=== PATIENT | male | born 1955 | race African-American/Black ===

== ENCOUNTER 2021-01-31 19:40 | Emergency (ER) | payer OTHER ==
[2021-01-31 19:59] VITALS: BP 141/92; PULSE 89; TEMP 99; BMI 36.3
[2021-01-31] MEDS ORDERED: CEPHALEXIN MONOHYDRATE 500 MG CAPSULE (UD) PO ONE (20:55)
[2021-01-31] MEDS ORDERED: DIPHTH,PERTUSS(ACELL),TET 0.5 ML DISP.SYRIN IM ONE ×2 (20:55→21:01)
[2021-01-31] MEDS ORDERED: CEPHALEXIN MONOHYDRATE 500 MG CAPSULE (UD) ONE (21:01)
== END 2021-01-31 21:08 | disposition home or self-care (01) ==
LOC: FER 19:40
PROC: 0HQGXZZ Repair Left Hand Skin, External Approach (ICD-10-PCS; principal; 2021-01-31)
PROC: 3E0234Z Introduction of Serum, Toxoid and Vaccine into Muscle, Percutaneous Approach (ICD-10-PCS; 2021-01-31)
DX: S61.211A Laceration without foreign body of left index finger without damage to nail, initial encounter (principal); W29.3XXA Contact with powered garden and outdoor hand tools and machinery, initial encounter; Y92.9 Unspecified place or not applicable
CPT/HCPCS: 90715; 99284-25

== ENCOUNTER 2021-02-08 17:44 | Emergency (ER) | payer OTHER ==
[2021-02-08 18:00] VITALS: BP 144/85; PULSE 85; BMI 36.8
== END 2021-02-08 18:35 | disposition home or self-care (01) ==
LOC: FER 17:44
DX: Z48.02 Encounter for removal of sutures (principal)
CPT/HCPCS: 99281-25

== ENCOUNTER 2024-02-27 21:03 | Observation (INO) | payer OTHER ==
[2024-02-27 22:06] LABS: BASO % 0.4 % (0-2.0); HEMATOCRIT 37.3 % (35.4-49); HEMOGLOBIN 12.6 GM/dL (11.7-16.9); LYMPH % 30.2 % (8-40); MCH 28.3 pg (25.7-33.7); MCHC 33.9 g/dl (32.0-35.9); MEAN CELL VOLUME 83.5 fl (80-96); MONO % 7.4 % (3.8-10.2); PLATELET COUNT 190 10^3/uL (134-434); RBC 4.46 M/mm3 (4.00-5.60); RDW 14.4 % (11.9-15.9); WHITE BLOOD COUNT 5.6 K/mm3 (4.0-10.0)
[2024-02-27 22:09] LABS: INR 1.04 (0.83-1.09); PROTHROMBIN TIME (PATIENT) 11.9 SEC (9.7-13.0)
[2024-02-27 22:11] LABS: ACTIVATED PTT 31.9 SECONDS (25.2-36.5)
[2024-02-27 22:45] LABS: POTASSIUM 3.9 mmol/L (3.5-5.1)
[2024-02-27 22:47] LABS: ALBUMIN 3.5 g/dl (3.4-5.0); CALCIUM 8.5 mg/dL (8.5-10.1)
[2024-02-27 22:50] LABS: BLOOD UREA NITROGEN 12.8 mg/dL (7-18)
[2024-02-27 22:51] LABS: CREATININE 1.1 mg/dL (0.55-1.3)
[2024-02-27 22:52] LABS: TOT PROT 6.3 g/dl (6.4-8.2)
[2024-02-27 22:54] LABS: BILIRUBIN,TOTAL 0.6 mg/dL (0.2-1)
[2024-02-27] MEDS ORDERED: ATORVASTATIN CA 40 MG TABLET (FP) ONE (23:17)
[2024-02-27] MEDS: ASPIRIN 81 MG CHEWABLE TABLETS PO ONE (23:19)
[2024-02-27] MEDS: ATORVASTATIN CA 40 MG TABLET (FP) PO ONE (23:19)
[2024-02-27] MEDS ORDERED: ASPIRIN 81 MG CHEWABLE TABLETS ONE (23:19)
[2024-02-28 01:28] LABS: MAGNESIUM 1.8 mg/dL (1.8-2.4)
[2024-02-28 04:01] VITALS: BMI 36.8
[2024-02-28 08:23] LABS: HEMATOCRIT 37.7 % (35.4-49); HEMOGLOBIN 12.6 GM/dL (11.7-16.9); MCH 27.9 pg (25.7-33.7); MCHC 33.4 g/dl (32.0-35.9); MEAN CELL VOLUME 83.6 fl (80-96); MEAN PLT VOLUME 8.8 fl (7.5-11.1); PLATELET COUNT 187 10^3/uL (134-434); RBC 4.52 M/mm3 (4.00-5.60); RDW 14.4 % (11.9-15.9); WHITE BLOOD COUNT 5.2 K/mm3 (4.0-10.0)
[2024-02-28 08:36] LABS: POTASSIUM 3.8 mmol/L (3.5-5.1)
[2024-02-28 08:53] LABS: CALCIUM 8.5 mg/dL (8.5-10.1)
[2024-02-28 08:54] LABS: ALBUMIN 3.3 g/dl (3.4-5.0)
[2024-02-28 08:57] LABS: PHOSPHOROUS 2.9 mg/dL (2.5-4.9)
[2024-02-28 08:59] LABS: BILIRUBIN,TOTAL 0.9 mg/dL (0.2-1)
[2024-02-28] MEDS ORDERED: ASPIRIN 81 MG CHEWABLE TABLETS PO SCH (10:00)
[2024-02-28] MEDS: ASPIRIN 81 MG CHEWABLE TABLETS PO SCH (10:37)
[2024-02-28] MEDS: ENOXAPARIN NA (PORCINE) 40 MG/0.4 ML DISP.SYRIN SQ SCH (10:37)
[2024-02-28] MEDS: ATORVASTATIN CA 40 MG TABLET (FP) PO SCH (21:32)
[2024-02-28] MEDS ORDERED: ATORVASTATIN CA 10 MG TABLET (FP) PO SCH (22:00)
[2024-02-28] MEDS ORDERED: ATORVASTATIN CA 40 MG TABLET (FP) PO SCH (22:00)
[2024-02-29 07:35] LABS: MCH 28.2 pg (25.7-33.7); MCHC 34.1 g/dl (32.0-35.9); MEAN CELL VOLUME 82.7 fl (80-96); MEAN PLT VOLUME 8.5 fl (7.5-11.1); PLATELET COUNT 189 10^3/uL (134-434); RBC 4.59 M/mm3 (4.00-5.60); RDW 14.5 % (11.9-15.9); WHITE BLOOD COUNT 4.7 K/mm3 (4.0-10.0)
[2024-02-29 07:43] LABS: ALBUMIN 3.3 g/dl (3.4-5.0); CALCIUM 8.8 mg/dL (8.5-10.1)
[2024-02-29 07:44] LABS: BLOOD UREA NITROGEN 11.6 mg/dL (7-18); MAGNESIUM 1.9 mg/dL (1.8-2.4)
[2024-02-29 07:48] LABS: CREATININE 1.1 mg/dL (0.55-1.3); PHOSPHOROUS 2.5 mg/dL (2.5-4.9)
[2024-02-29 07:49] LABS: BILIRUBIN,TOTAL 0.8 mg/dL (0.2-1)
[2024-02-29] MEDS: ASPIRIN COATED 81 MG TABLET.EC PO SCH (11:42)
[2024-02-29 14:33] VITALS: BP 149/78; PULSE 79; RESP 18; TEMP 98.4
[2024-02-29] MEDS: CLOPIDOGREL BISULFATE 75 MG TABLET (FP) PO SCH (17:59)
== END 2024-02-29 18:49 | disposition home or self-care (01) ==
LOC: JER 21:03 → INTOOBSV 22:26 → OBSVTOIN 22:26 → JERBED 22:26 → UNDOADMOB 22:26 → OBSVTOIN 02-28 01:00 → INTOOBSV 02-28 01:00 → JERBED 02-28 01:00 → J4W 02-28 03:18 → JERBED 02-28 15:34 → J4W 02-28 15:34
PROVIDERS: ADMIT Internal Medicine; ATTEND Internal Medicine
DX: G45.9 Transient cerebral ischemic attack, unspecified (principal); N40.0 Benign prostatic hyperplasia without lower urinary tract symptoms; E66.812 Obesity, class 2; R20.0 Anesthesia of skin
CPT/HCPCS: 36415; 70450-TC; 71045-TC-FY; 80053; 80061; 82550; 82553; 82962; 83036; 83735; 84100; 84439; 84443; 84484; 85025; 85027; 85610; 85730; 86850; 86900; 86901; 93005; 93010; 93306-TC; 93880-TC; 99285-25; G0378